=== PATIENT | male | born 1955 | race Caucasian/White ===

== ENCOUNTER 2024-01-17 07:04 | Day surgery (SDC) | payer OTHER, SELFPAY ==
[2024-01-17] VITALS (9 sets, daily range): BP systolic 86–117; BP diastolic 54–65; PULSE 61–84; RESP 14–18; TEMP 35.9–37; O2SAT 97–98; BMI 23.4
[2024-01-17 07:51] LABS: Bedside Glucose 130 mg/dL (74-106)
--- NOTE | 2024-01-17 07:53 | PCM.PRE.AN2 ---
ASA Classification* ASA Classification ASA Classification: 2 Assessment & Plan Anesthesia* Anesthesia Assessment Anesthesia Assessment: Discussed sedation and/or anesthesia options, risks, benefits, and alternatives with patient/parents/legal guardian/POA. Questions invited. The patient/parents/legal guardian/POA seems to understand and agrees to proceed with anesthesia plan. Reviewed the physical assessment, medical history, allergy history and patient home medications list prior to surgery/procedure/anesthetic and documented any changes. Performed airway and anesthesia risk assessments. 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 When Was Last Pacemaker Check QUESTION #4 FULL TEXT: You/Your Family Experience fever (hyperthermia) with Anesthesia Last Oral Intake Last Oral intake: Last Oral Intake NPO since Meds taken in AM with sips of Yes 01/17/24 07:20 water? Meds patient instructed to take am of surgery PONV PONV - timber management specialist: PONV - timber management specialist Female No 01/12/24 16:13 HX of Motion Sickness No 01/12/24 16:13 HX of N/V After Surgery No 01/12/24 16:13 Non-Smoker Yes 01/12/24 16:13 Duration of Surgery greater No 01/12/24 16:13 than 60 minutes Number of Risk Factors 1 01/12/24 16:13 PONV Score Low Risk 01/12/24 16:13 Height & Weight Height & Weight: Anesthesia: Height & Weight Height 5 ft 8 in 01/17/24 07:20 Weight: 70 kg 01/17/24 07:20 Body Mass Index (BMI) 23.4 01/17/24 07:20 Respiratory Assessment Respiratory Assessment - timber management specialist: Respiratory Tract Infection Hx - timber management specialist Hx Respiratory Tract Infection No 01/12/24 16:13 STOP Sleep Apnea STOP Sleep Apnea - timber management specialist: STOP Sleep Apnea - timber management specialist Hx Hypertension Yes: CONTROLLED ON MED 01/12/24 16:13 Hx Sleep Apnea No 01/12/24 16:13 CPAP BIPAP Do you snore loudly (louder No 01/12/24 16:13 than talking or can be heard Do you often feel tired/ No 01/12/24 16:13 fatigued/ sleepy during daytime? Has anyone observed you stop No 01/12/24 16:13 breathing during sleep? STOP Results Negative 01/12/24 16:13 QUESTION #5 FULL TEXT : Do you snore loudly (louder than talking or can be heard through closed doors)? 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 Specify any problems Hx of Preganancy in last 3 N/A 01/12/24 16:13 Months Nurse Filling Out Transfusion VCHRISTIN 01/12/24 16:13 & Questions: Date: 01/12/24 01/12/24 16:13 Time: 16:15 01/12/24 16:13 Patient unable to answer at this time (ie. 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 Gastric reflux Non-smoker Shortness of breath on exertion Leg cramps History of edema History of echocardiogram History of irregular heartbeat Kidney function abnormal High cholesterol Iron deficiency anemia HTN (hypertension) Diabetes Home Medications ?Medication ?Instructions ?Recorded ?Last Taken ?Type atorvastatin 20 mg tablet 20 mg PO QDAY 01/10/24 Unknown History empagliflozin 25 mg tablet 25 mg PO QDAY 01/10/24 Unknown History (Jardiance) ferrous sulfate 325 mg (65 mg 325 mg PO QODAY 01/10/24 Unknown History iron) tablet (FeroSul) lisinopril 2.5 mg tablet 2.5 mg PO QDAY 01/10/24 Unknown History metformin 1,000 mg tablet 1,000 mg PO BID 01/10/24 Unknown History multivitamin 1 tab PO QAM 01/10/24 Unknown History omega 4-ynu-yiz-fish oil 300 1 cap PO QDAY 01/10/24 Unknown History mg-1,000 mg capsule (Fish Oil) omeprazole 40 mg capsule,delayed 40 mg PO QDAY 01/10/24 Unknown History release psyllium husk 0.4 gram capsule 0.4 g PO DAILY 01/10/24 Unknown History (Metamucil) ranolazine 500 mg tablet,extended 500 mg PO BID 01/10/24 01/17/24 06:00 History release,12 hr saw palmetto 500 mg capsule 500 mg PO BID 01/10/24 Unknown History sitagliptin phosphate 100 mg 100 mg PO QDAY 01/10/24 Unknown History tablet (Januvia) tamsulosin 0.4 mg capsule 0.4 mg PO QDAY 01/10/24 Unknown History vitamin B12 500 mcg-folic acid 400 1 tab PO QDAY 01/10/24 Unknown History mcg tablet betamethasone dipropionate 0.05 % 1 applic topical BID PRN PSORIASIS 01/12/24 Unknown History topical cream cholecalciferol (vitamin D3) 25 25 mcg PO DAILY 01/12/24 Unknown History mcg (1,000 unit) capsule (Vitamin D3) Allergy/AdvReac Type Severity Reaction Status Date / Time isosorbide Allergy Mild PT UNSURE Verified 01/12/24 15:55 OF REACTION Sulfa (Sulfonamide Allergy Mild Other Verified 01/12/24 15:55 Antibiotics) Family History Mother Diabetes Hypertension CAD (coronary artery disease) Father Diabetes Heart disease CAD (coronary artery disease) Cancer skin CVA (cerebral vascular accident) Brother Diabetes Heart disease CVA (cerebral vascular accident) Sister Diabetes Surgical History Status post lung surgery S/P laparoscopic cholecystectomy S/P shoulder surgery S/P ear surgery Social History Smoking Status: Never smoker alcohol intake: never Review of Systems (Anesthesia) ROS Narrative System reviewed and no additional complaints, except as documented.
--- NOTE | 2024-01-17 08:23 | PCM.HP.BLA ---
History and Physical Date of Admission: 01/17/24 Intake Vital Signs 01/09/2415:35 Height 5 ft 8 in Weight: 161 lb BMI 24.5 BP 122/76 H Blood Pressure Location Rt brachial Position Sitting Respiration 16 Intake Visit Reasons: UPPER AND LOWER - ANEMIA Chief Complaint: egd/c-scope Dry Heat Cabinet Attendant Required: No Is patient in pain?: No Allergies isosorbide Allergy (Mild, Verified 01/10/24 15:41) PT UNSURE OF REACTIONSulfa (Sulfonamide Antibiotics) Allergy (Mild, Verified 01/10/24 15:41) Other Medications ?Medication ?Instructions ?Recorded ?Confirmed ?Type atorvastatin 20 mg tablet 20 mg PO QDAY 01/10/24 01/10/24 History empagliflozin 25 mg tablet 25 mg PO QDAY 01/10/24 01/10/24 History (Jardiance) ferrous sulfate 325 mg (65 mg mg PO 01/10/24 01/10/24 History iron) tablet (FeroSul) lisinopril 2.5 mg tablet 2.5 mg PO QDAY 01/10/24 01/10/24 History metformin 1,000 mg tablet 1,000 mg PO BID 01/10/24 01/10/24 History multivitamin 1 tab PO QAM 01/10/24 01/10/24 History omega 0-ypn-ssw-fish oil 300 1 cap PO QDAY 01/10/24 01/10/24 History mg-1,000 mg capsule (Fish Oil) omeprazole 40 mg capsule,delayed 40 mg PO QDAY 01/10/24 01/10/24 History release psyllium husk 0.4 gram capsule 0.4 g PO ONCE 01/10/24 01/10/24 History (Metamucil) ranolazine 500 mg tablet,extended 500 mg PO BID 01/10/24 01/10/24 History release,12 hr saw palmetto 500 mg capsule 500 mg PO BID 01/10/24 01/10/24 History sitagliptin phosphate 100 mg 100 mg PO QDAY 01/10/24 01/10/24 History tablet (Januvia) tamsulosin 0.4 mg capsule 0.4 mg PO QDAY 01/10/24 01/10/24 History vitamin B12 500 mcg-folic acid 400 1 tab PO QDAY 01/10/24 01/10/24 History mcg tablet Have you fallen in the past year?: Yes PFS Medical History (Updated 01/10/24 @ 15:33 by Isha Anderson) Kidney function abnormal High cholesterol Iron deficiency anemia HTN (hypertension) Diabetes Surgical History (Updated 01/10/24 @ 15:33 by Isha Anderson) Status post lung surgery S/P laparoscopic cholecystectomy S/P shoulder surgery S/P ear surgery Family History (Updated 01/10/24 @ 15:34 by Isha Anderson) Mother Diabetes Hypertension CAD (coronary artery disease)Father Diabetes Heart disease CAD (coronary artery disease) Cancer skin CVA (cerebral vascular accident)Brother Diabetes Heart disease CVA (cerebral vascular accident)Sister Diabetes Social History (Updated 01/10/24 @ 15:35 by Isha Anderson) Smoking Status: Never smoker alcohol intake: never HPI HPI HPI: Patient is a 68-year-old male here for double scope. The patient reports he has been having iron deficiency anemia as well as fatigue and weight loss. He denies blood in his stool or abdominal pain. ROS General General: Yes weight change and appetite; No fatigue, colon cancer, breast cancer or weakness HEENT HEENT: Yes difficulty swallowing; No eye injury, eye surgery, swollen glands or hoarseness Endo Endocrine: Yes diabetes mellitus; No thyroid disease, thyroid cancer, Hair loss, heat intolerance or cold intolerance Skin Skin: No rash or changing moles Breast Breast: No left breast lump, right breast lump, nipple discharge, breast pain, abnormal mammogram, abnormal US or breast enlargement Musc Musculoskeletal: Yes back problems and arthritis; No rheumatoid arthritis, gout or joint pain Cardio Cardiovascular: Yes murmur and shortness of breat with exertion; No pacemaker, heart disease, atrial fibrillation, high blood pressure, heart attack, heart stent, palpitations or chest pain Psych Psychiatric: No depression, anxiety or hearing voices Resp Respiratory: No shortness of breath, No sleep apnea, No cough, No COPD, No asthma, No emphysema and No wheezing Gastro Gastrointestinal: Yes abdominal pain, No nausea or vomiting, Yes diarrhea, Yes constipation, No blood in stool, Yes acid reflux, No hemorrhoids, No ulcers, Yes gallbladder problem and No black,tarry stools Jean-Pierre Hematologic: No blood thinners, No blood disorders, No bleeding, Yes anemia and No blood clots Neuro Neurologic: No system reviewed and no additional complaints, except as documented, No as per HPI, No abnormal gait, No abnormal hearing, No abnormal movements, No abnormal speech, No behavioral changes, No burning sensations, No confusion, No convulsions, No disequilibrium, No dizziness, No localized weakness, No frequent falls, No headache(s), No lack of coordination, No loss of vision, No memory loss, No numbness, No other visual disturbances, No radicular pain, No restless legs, No sensory deficit, No syncope, No tingling, No tremor(s), No weakness and No other Exam Const General: cooperative Orientation: alert and oriented x3 HENMT Head: normal to inspection Neck Neck: normal visual inspection and full ROM Chest Chest palpation & inspection: normal inspection of the chest Resp Effort & Inspection: normal respiratory effort Auscultation: clear to auscultation bilaterally Cardio Rate: regular rate Rhythm: regular rhythm GI Inspection: non-distended Palpation: soft and nontender Skin General: no rashes or lesions noted Neuro General: patient alert and patient oriented x3 Extrem General: full ROM Psych Appearance: grossly normal Mental Status: mental status grossly normal Assessment and Plan Assessment and Plan (1) Iron deficiency anemia: Plan: The patient has iron deficiency anemia. He is not having any abdominal pain or gross blood in his stool. He had his last EGD in 2019 and last colonoscopy in 2018. Plan for double scope. I explained endoscopy in detail to the patient. I explained the risks including but not limited to stroke or heart attack with anesthesia, perforation of the GI tract, bleeding, infection. I explained that any of these could necessitate further emergency surgery. The patient understands and all questions were answered sufficiently. The patient wishes to proceed with procedure. Alexsander Salmeron MD Pager: [facility] [address] [place] [address], [address] [place] [address] Office: I have examined the patient and the H&P has been reviewed. There are no clinical changes since date of exam.
--- NOTE | 2024-01-17 09:04 | OP.EGD_ITS ---
Patient Name: Solomon Sandoval Procedure Date: 01/17/2024 8:30 AM Date of : 1955 Age: 68 Procedure: Upper GI endoscopy Indications: Iron deficiency anemia Providers: Alexsander Salmeron MD Referring MD: Terrance Walker Medicines: Propofol per Anesthesia Patient Profile: This is a 68 year old male. Refer to note in patient chart for documentation of history and physical. Complications: No immediate complications. Procedure: Pre-Anesthesia Assessment: - Prior to the procedure, a History and Physical was performed, and patient medications and allergies were reviewed. The patient's tolerance of previous anesthesia was also reviewed. The risks and benefits of the procedure and the sedation options and risks were discussed with the patient. All questions were answered, and informed consent was obtained. Prior Anticoagulants: The patient has taken no anticoagulant or antiplatelet agents. After reviewing the risks and benefits, the patient was deemed in satisfactory condition to undergo the procedure. After obtaining informed consent, the endoscope was passed under direct vision. Throughout the procedure, the patient's blood pressure, pulse, and oxygen saturations were monitored continuously. The Colonoscope was introduced through the mouth, and advanced to the second part of duodenum. The upper GI endoscopy was accomplished without difficulty. The patient tolerated the procedure well. Scope In: 8:39:15 AM Scope Out: 8:40:59 AM Total Procedure Duration Time 0 hours 1 minute 44 seconds Findings: The esophagus was normal. The stomach was normal. The examined duodenum was normal. Impression: - Normal esophagus. - Normal stomach. - Normal examined duodenum. - No specimens collected. Recommendation: - Discharge patient to home. - Resume previous diet. - Continue present medications. Procedure Code(s): --- Professional --- 31991, Esophagogastroduodenoscopy, flexible, transoral; diagnostic, including collection of specimen(s) by brushing or washing, when performed (separate procedure) Diagnosis Code(s): --- Professional --- D50.9, Iron deficiency anemia, unspecified CPT copyright 2021 [employer]. All rights reserved. The codes documented in this report are preliminary and upon coach wirer review may be revised to meet current compliance requirements. Alexsander Salmeron MD 01/17/2024 9:03:44 AM This report has been signed electronically. Number of Addenda: 0 Note Initiated On: 01/17/2024 8:30 AM
--- NOTE | 2024-01-17 09:04 | OP.CCLET_ITS ---
01/17/2024 Terrance Walker Re : Upper GI endoscopy procedure for Solomon Sandoval Dottier Aaron This procedure was performed on Wednesday, January 17, 2024. My impressions and recommendations are as follows: Impressions : - Normal esophagus. - Normal stomach. - Normal examined duodenum. - No specimens collected. Recommendations : - Discharge patient to home. - Resume previous diet. - Continue present medications. My findings are described in the full procedure note, which is enclosed. If I can be of further assistance, please feel free to contact me at Doctor phone number(s): , Work: . Sincerely, Alexsander Salmeron MD 01/17/2024 9:03:44 AM This report has been signed electronically.
--- NOTE | 2024-01-17 09:05 | OP.CCLET_ITS ---
01/17/2024 Terrance Walker Re : Colonoscopy procedure for Solomon Sandoval Dear Aaron This procedure was performed on Wednesday, January 17, 2024. My impressions and recommendations are as follows: Impressions : - The entire examined colon is normal on direct and retroflexion views. - No specimens collected. Recommendations : - Discharge patient to home. - Resume previous diet. - Continue present medications. - Repeat colonoscopy is not recommended due to current age (66 years or older) for screening purposes. My findings are described in the full procedure note, which is enclosed. If I can be of further assistance, please feel free to contact me at Doctor phone number(s): , Work: . Sincerely, Alexsander Salmeron MD 01/17/2024 9:05:00 AM This report has been signed electronically.
--- NOTE | 2024-01-17 09:05 | OP.COLON_ITS ---
Patient Name: Solomon Sandoval Procedure Date: 01/17/2024 8:41 AM Date of : 1955 Age: 68 Procedure: Colonoscopy Indications: Iron deficiency anemia Providers: Alexsander Salmeron MD Referring MD: Terrance Walker Medicines: Propofol per Anesthesia Patient Profile: This is a 68 year old male. Refer to note in patient chart for documentation of history and physical. Last Colonoscopy: several years ago. Complications: No immediate complications. Procedure: Pre-Anesthesia Assessment: - Prior to the procedure, a History and Physical was performed, and patient medications and allergies were reviewed. The patient's tolerance of previous anesthesia was also reviewed. The risks and benefits of the procedure and the sedation options and risks were discussed with the patient. All questions were answered, and informed consent was obtained. Prior Anticoagulants: The patient has taken no anticoagulant or antiplatelet agents. After reviewing the risks and benefits, the patient was deemed in satisfactory condition to undergo the procedure. - Prior to the procedure, a History and Physical was performed, and patient medications and allergies were reviewed. The patient's tolerance of previous anesthesia was also reviewed. The risks and benefits of the procedure and the sedation options and risks were discussed with the patient. All questions were answered, and informed consent was obtained. Prior Anticoagulants: The patient has taken no anticoagulant or antiplatelet agents. After reviewing the risks and benefits, the patient was deemed in satisfactory condition to undergo the procedure. After I obtained informed consent, the scope was passed under direct vision. Throughout the procedure, the patient's blood pressure, pulse, and oxygen saturations were monitored continuously. The Colonoscope was introduced through the anus and advanced to the cecum, identified by appendiceal orifice and ileocecal valve. The colonoscopy was performed without difficulty. The patient tolerated the procedure well. The quality of the bowel preparation was good. The ileocecal valve, appendiceal orifice, and rectum were photographed. Scope In: 8:42:19 AM Scope Withdrawal Time 0 hours 5 minutes 12 seconds Scope Out: 9:00:44 AM Total Procedure Duration Time 0 hours 18 minutes 25 seconds Findings: The entire examined colon appeared normal on direct and retroflexion views. Impression: - The entire examined colon is normal on direct and retroflexion views. - No specimens collected. Recommendation: - Discharge patient to home. - Resume previous diet. - Continue present medications. - Repeat colonoscopy is not recommended due to current age (66 years or older) for screening purposes. Procedure Code(s): --- Professional --- 97348, Colonoscopy, flexible; diagnostic, including collection of specimen(s) by brushing or washing, when performed (separate procedure) Diagnosis Code(s): --- Professional --- D50.9, Iron deficiency anemia, unspecified CPT copyright 2021 [employer]. All rights reserved. The codes documented in this report are preliminary and upon transportation driver review may be revised to meet current compliance requirements. Alexsander Salmeron MD 01/17/2024 9:05:00 AM This report has been signed electronically. Number of Addenda: 0 Note Initiated On: 01/17/2024 8:41 AM
--- NOTE | 2024-01-17 09:07 | PCM.POST.ANE ---
Anesthesia: Postop Eval I Current Vital Signs Temperature: 97 F Pulse Rate: 76 Blood Pressure: 89/57 Respiratory Rate: 16 Pulse Ox: 97 Assessment Airway patent: Yes Spontaneous unlabored respirations: Yes nausea: No Vomiting: No Anesthesia Complication: No Fluid Hydration Crystalloid volume administer (ml): 1,000 Total IV fluid infused: 1,000 Progress Note Anesthesia document: Postop Eval 1 completed: Yes
--- NOTE | 2024-01-17 09:08 | PCM.POSTANE2 ---
Anesthesia Postop Eval I Sum Postop Eval Completion status Anesthesia document: Postop Eval 1 completed: Yes Anesthesia Postop Eval I Summary Anesthesia Postop Eval I Summary: Anesthesia Postop Eval I: Assessment Summary Airway patent Yes 01/17/24 09:07 Spontaneous unlabored Yes 01/17/24 09:07 respirations Mental status nausea No 01/17/24 09:07 Vomiting No 01/17/24 09:07 Anesthesia Postop Eval I: Fluid Summary Crystalloid volume administer 1,000 01/17/24 09:07 (ml) Colloids volume administered ( ml) Blood Product volume administered (ml) Total IV fluid infused 1,000 01/17/24 09:07 Anesthesia Postop Eval I: Summary Notes Anesthesia Complication No 01/17/24 09:07 Anesthesia Complication Comment: Post-operative progress note Anesthesia: Postop Eval II Evaluation Mental status: Awake Pain Level: 0 nausea: No Vomiting: No
== END 2024-01-17 09:56 | disposition home or self-care (01) ==
LOC: EN 07:05 → AC 07:06
PROVIDERS: PCP Family Medicine; Referring Provider Family Medicine; Visit Provider Surgery
PROC: 0DJD8ZZ Inspection of Lower Intestinal Tract, Via Natural or Artificial Opening Endoscopic (ICD-10-PCS; CPT 45378; principal; 2024-01-17 08:10)
DX: D50.9 Iron deficiency anemia, unspecified (principal); E11.9 Type 2 diabetes mellitus without complications; I10 Essential (primary) hypertension; Z79.84 Long term (current) use of oral hypoglycemic drugs; E78.00 Pure hypercholesterolemia, unspecified; Z90.49 Acquired absence of other specified parts of digestive tract
CPT/HCPCS: 43235; 45378; 82962; A4216; J3490